=== PATIENT | male | born 1975 | race African-American/Black ===

== ENCOUNTER 2024-11-18 09:13 | Outpatient (CLI) | payer BC ==
[2024-11-18] MEDS ORDERED: Iopamidol 370 76% 100 ML VIAL ONE (15:15)
== END 2024-11-18 09:14 | disposition home or self-care (01) ==
LOC: CT 09:13
PROVIDERS: ATTEND Urology
DX: N32.9 Bladder disorder, unspecified (principal); N40.0 Benign prostatic hyperplasia without lower urinary tract symptoms
CPT/HCPCS: 74178; Q9967